=== PATIENT | female | born 1960 | race Caucasian/White ===

== ENCOUNTER 2019-08-02 18:41 | Emergency (ER) | payer MEDICAID ==
[~2019-08-02] VITALS: Ht 165.1 cm; Wt 56.0 kg
--- NOTE | 2019-08-02 18:57 | NUR ---
PT MYLES VILCHIS. SAYS SHE WAS "FEELING NAUSEOUS SO I WENT TO THE [employer] OF THE BUILD[facility] I LIVE AT AND TOLD HER I WASNT FEELING GOOD. SHE TOOK MY TEMP IT WAS 100. THEN A FEW MINUTES LATER SHE TOOK IT AGAIN AND IT WAS 101. SHE THEN CALLED 911". PT CHIEF COMPLAINTS ARE NAUSEA, FEELING WEAK, AND HEADACHE. HAS NOT TAKING MOTRIN OR TYLENOL ASSOCIATE CURATOR. EKG DONE. 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 PA IS BEDSIDE EMS GAVE HER 4MG ZOFRAN ASSOCIATE CURATOR. TEMP IN TRIAGE 99.2 ORAL
[2019-08-02] MEDS ORDERED: ONDANSETRON 2MG/ML, 2ML ONE (19:14)
[2019-08-02 19:28] LABS: BASOPHILS # (AUTO) 0.03 x10^3/uL (0-0.1); BASOPHILS % (AUTO) 0 % (0-1); EOSINOPHILS % (AUTO) 0 % (1-7); LYMPHOCYTES # (AUTO) 0.88 x10^3/uL (1-3.4); LYMPHOCYTES % (AUTO) 7 % (22-44); MD NO; MEAN CORPUSCULAR HEMOGLOBIN 29.2 pg (27.0-34.8); MEAN CORPUSCULAR HGB CONC 33.1 g/dL (32.4-35.8); MEAN CORPUSCULAR VOLUME 88.3 fL (80-100); MEAN PLATELET VOLUME 9.6 fL (7.4-10.4); MONOCYTES # (AUTO) 0.59 x10^3/uL (0.2-0.8); MONOCYTES % (AUTO) 4 % (2-9); NEUTROPHILS # (AUTO) 12.01 x10^3/uL (1.8-6.8); NEUTROPHILS % (AUTO) 89 % (42-75); PLATELET COUNT 238 x10^3/uL (130-400); RED BLOOD COUNT 5.37 x10^6/uL (3.82-5.3); RED CELL DISTRIBUTION WIDTH 12.9 % (9.6-15.2)
[2019-08-02] MEDS ORDERED: ONDANSETRON 2MG/ML, 2ML IVPush ONE (19:30)
[2019-08-02] MEDS ORDERED: SODIUM CHLORIDE 0.9% 1,000ML IVBOLUS ONE (19:30)
[2019-08-02 19:41] LABS: ANION GAP 8 mmol/L (5-15); CALCIUM 8.6 mg/dL (8.5-10.1); CHLORIDE 93 mmol/L (98-107)
[2019-08-02 19:44] LABS: ALANINE AMINOTRANSFERASE 20 U/L (12-78); ALKALINE PHOSPHATASE 124 U/L (45-117); BILIRUBIN,TOTAL 0.9 mg/dL (0.2-1.0); CREATININE 0.92 mg/dL (0.55-1.02); TOTAL PROTEIN 7.7 g/dL (6.4-8.2)
[2019-08-02 19:46] LABS: MICROSCOPIC INDICATED
[2019-08-02 19:49] LABS: CULTURE INDICATED? YES
--- NOTE | 2019-08-02 20:06 | NUR ---
MD IS BEDSIDE AT THIS TIME
[2019-08-02 20:10] LABS: ACETONE, SERUM Trace (Negative)
[2019-08-02] MEDS ORDERED: CEFTRIAXONE PMX 1GM/50ML 50 ML ONE (20:13)
[2019-08-02] MEDS ORDERED: CEFTRIAXONE PMX 1GM/50ML 50 ML IV ONE (20:30)
[2019-08-02 20:32] VITALS: BP 153/76
--- NOTE | 2019-08-02 20:34 | NUR ---
PT RESTING IN [facility]. IV ABX INFUSING. NO NEEDS AT THIS TIME
[2019-08-02] MEDS ORDERED: METOCLOPRAMIDE 5 MG/ML, 2ML ONE (20:52)
[2019-08-02] MEDS ORDERED: METOCLOPRAMIDE 5 MG/ML, 2ML IVPush ONE (21:00)
--- NOTE | 2019-08-02 21:04 | NUR ---
PT SAID SHE URINATED IN HER DIAPERS. PT WAS WAS OFFERED NEW UNDERWEAR AND OR DIAPERS AND SHE REFUSED THEM. PT AMBULATED TO BATHROOM
== END 2019-08-02 21:36 | disposition home or self-care (01) ==
LOC: ED 19:33
DX: N30.01 Acute cystitis with hematuria (principal); R11.2 Nausea with vomiting, unspecified; J44.9 Chronic obstructive pulmonary disease, unspecified; E11.9 Type 2 diabetes mellitus without complications; R00.0 Tachycardia, unspecified
CPT/HCPCS: 36415; 80053; 81001; 82010; 85025; 87077; 87086; 87186; 93005; 96361; 96365; 96375; 99284; J0696; J2405; J2765; J7030